=== PATIENT | male | born 1965 | race Caucasian/White ===

== ENCOUNTER 2016-12-26 10:41 | Emergency (ER) | payer OTHER ==
[~2016-12-26] VITALS: Ht 175.2 cm; Wt 90.7 kg
[~2016-12-26 10:41] MED LIST: BENADRYL50 MG PO; CIPROFLOXACIN500 MG PO; PREDNICOT20 MG PO; VICODIN 500 MG-1 TAB PO
[2016-12-26] MEDS ORDERED: NAPROSYN500 MG PO (11:24)
== END 2016-12-26 12:21 | disposition home or self-care (01) ==
LOC: ED 10:41
DX: S86.912A Strain of unspecified muscle(s) and tendon(s) at lower leg level, left leg, initial encounter (principal); F17.200 Nicotine dependence, unspecified, uncomplicated; X58.XXXA Exposure to other specified factors, initial encounter; Y93.89 Activity, other specified; Y92.89 Other specified places as the place of occurrence of the external cause; Y99.9 Unspecified external cause status

== ENCOUNTER 2017-05-24 08:29 | Emergency (ER) | payer OTHER ==
[~2017-05-24] VITALS: Ht 170.1 cm; Wt 81.6 kg
[~2017-05-24 08:29] MED LIST changes: +NAPROSYN500 MG PO
[2017-05-24] MEDS ORDERED: Motrin,Rufen800 MG PO (09:44)
== END 2017-05-24 10:06 | disposition home or self-care (01) ==
LOC: ED 08:29
DX: S96.811A Strain of other specified muscles and tendons at ankle and foot level, right foot, initial encounter (principal); F17.200 Nicotine dependence, unspecified, uncomplicated; Z79.899 Other long term (current) drug therapy; W22.8XXA Striking against or struck by other objects, initial encounter; Y93.01 Activity, walking, marching and hiking; Y92.098 Other place in other non-institutional residence as the place of occurrence of the external cause; Y99.8 Other external cause status

== ENCOUNTER 2018-02-17 09:32 | Emergency (ER) | payer OTHER ==
[~2018-02-17] VITALS: Wt 90.7 kg
[~2018-02-17 09:32] MED LIST changes: +Motrin,Rufen800 MG PO
== END 2018-02-17 12:54 | disposition home or self-care (01) ==
LOC: ED 09:32
DX: S00.33XA Contusion of nose, initial encounter (principal); Z79.1 Long term (current) use of non-steroidal anti-inflammatories (NSAID); Z79.899 Other long term (current) drug therapy; W20.8XXA Other cause of strike by thrown, projected or falling object, initial encounter; Y93.89 Activity, other specified; Y92.89 Other specified places as the place of occurrence of the external cause; Y99.8 Other external cause status

== ENCOUNTER 2020-07-10 13:32 | Emergency (ER) | payer OTHER ==
[~2020-07-10] VITALS: Wt 81.6 kg
[2020-07-10 14:36] LABS: BASO # 0.1 10*3/uL (0.0-0.1); BASO % 0.9 % (0.0-1.0); EOS # 0.1 10*3/uL (0.0-0.4); HEMATOCRIT 38.3 % (42.0-52.0); LYMPH # 2.1 10*3/uL (1.3-4.4); LYMPH % 35.8 % (27.0-41.0); MEAN CELL VOLUME 65.6 fl (80.0-94.0); MEAN CORPUSCULAR HGB 20.7 pg (27.0-31.0); MEAN CORPUSCULAR HGB CONC 31.6 g/dl (33.0-37.0); MEAN PLATELET VOLUME 9.2 fl (9.6-12.3); MONO # 0.4 10*3/uL (0.1-1.0); MONO % 7.1 % (3.0-9.0); NEUT # 3.2 10*3/uL (2.3-7.9); PLATELET COUNT AUTOMATED 225 10*3/uL (130-400); RED BLOOD COUNT 5.84 10*6/uL (4.50-5.90); RED CELL DISTRI WIDTH 17.2 % (0-14.5); WHITE BLOOD COUNT 5.8 10*3/uL (4.8-10.8)
[2020-07-10 14:49] LABS: ACT PARTIAL THROMBO TIME 29.9 SECONDS (20.0-32.1)
[2020-07-10 14:53] LABS: ALBUMIN 4.1 gm/dl (3.1-4.5); ALKALINE PHOSPHATASE 80 U/L (45-117); BUN 12 mg/dl (7-24); CHLORIDE 106 mmol/L (98-107); CREATININE 0.89 mg/dL (0.70-1.30); POTASSIUM 3.4 mmol/L (3.5-5.1); SGOT/AST 17 IU/L (3-35); SGPT/ALT 25 U/L (12-78); SODIUM 139 mmol/L (136-145); TOTAL PROTEIN 7.8 gm/dL (6.4-8.2)
[2020-07-10 15:43] LABS: BILIRUBIN Negative (Negative); BLOOD Negative (Negative); CLARITY Clear (Clear); COLOR Yellow (Yellow); GLUCOSE Negative (Negative); KETONE Negative (Negative); LEUKO ESTERASE Negative (Negative); NITRITE Negative (Negative); SPECIFIC GRAVITY <= 1.005 (1.001-1.030); UROBILINOGEN 0.2 E.U./dl (0.0-1.0)
[2020-07-10 15:50] LABS: URINE AMPHETAMINES < 1000 (1000ng/ml); URINE BARBITURATES < 200 (200ng/ml); URINE BENZODIAZEPINES < 200 (200ng/ml); URINE CANNABINOIDS (THC) < 50 (50ng/ml); URINE COCAINE < 300 (300ng/ml); URINE METHADONE < 300 (300ng/ml); URINE OPIATES < 300 (300ng/ml); URINE PHENCYCLIDINE < 25 (25ng/ml)
[2020-07-10 16:00] LABS: BACTERIA TRACE; EPITHELIAL CELLS 0-2; WBC 0-2 wbc/hpf (0-5)
== END 2020-07-10 16:58 | disposition home or self-care (01) ==
LOC: ED 13:32
PROVIDERS: Nurse Practitioner
DX: S00.12XA Contusion of left eyelid and periocular area, initial encounter (principal); Z79.899 Other long term (current) drug therapy; W19.XXXA Unspecified fall, initial encounter; Y93.89 Activity, other specified; Y92.89 Other specified places as the place of occurrence of the external cause; Y99.0 Civilian activity done for income or pay

== ENCOUNTER → 2020-10-26 | Outpatient (CLI) | payer OTHER | END | disposition home or self-care (01) | LOC: CT 15:00 | PROVIDERS: ATTEND Family Medicine | DX: R47.01 Aphasia (principal) ==

== ENCOUNTER → 2020-11-03 | Outpatient (CLI) | payer OTHER | END | disposition home or self-care (01) | LOC: CT 14:40 | PROVIDERS: ATTEND Family Medicine | DX: R53.83 Other fatigue (principal); R63.4 Abnormal weight loss; R13.10 Dysphagia, unspecified; R47.01 Aphasia; F17.200 Nicotine dependence, unspecified, uncomplicated; R04.2 Hemoptysis ==

== ENCOUNTER → 2021-02-09 | Outpatient (CLI) | payer OTHER | END | disposition home or self-care (01) | LOC: RAD 07:59 | PROVIDERS: ATTEND Psychiatry & Neurology Neurology | DX: G31.9 Degenerative disease of nervous system, unspecified (principal) ==

== ENCOUNTER 2021-05-10 20:09 | Inpatient (IN) | payer OTHER ==
[~2021-05-10] VITALS: Ht 175.2 cm; Wt 69.0 kg
[2021-05-10 20:53] LABS: BASO % 0.4 % (0.0-1.0); EOS % 0.2 % (1.0-4.0); HEMATOCRIT 28.9 % (42.0-52.0); LYMPH # 0.3 10*3/uL (1.3-4.4); LYMPH % 6.2 % (27.0-41.0); MEAN CELL VOLUME 65.5 fl (80.0-94.0); MEAN CORPUSCULAR HGB 20.6 pg (27.0-31.0); MEAN CORPUSCULAR HGB CONC 31.5 g/dl (33.0-37.0); MEAN PLATELET VOLUME 8.6 fl (9.6-12.3); MONO # 0.4 10*3/uL (0.1-1.0); MONO % 7.8 % (3.0-9.0); NEUT # 4.3 10*3/uL (2.3-7.9); NEUT % 84.8 % (47.0-73.0); PLATELET COUNT AUTOMATED 208 10*3/uL (130-400); RED BLOOD COUNT 4.41 10*6/uL (4.50-5.90); RED CELL DISTRI WIDTH 16.3 % (0-14.5)
[2021-05-10 21:09] LABS: ALBUMIN 3.5 gm/dl (3.1-4.5); ALKALINE PHOSPHATASE 66 U/L (45-117); BUN 15 mg/dl (7-24); CHLORIDE 102 mmol/L (98-107); CREATININE 0.82 mg/dL (0.70-1.30); SGOT/AST 25 IU/L (3-35); SGPT/ALT 20 U/L (12-78); SODIUM 136 mmol/L (136-145); TOTAL PROTEIN 6.9 gm/dL (6.4-8.2)
[2021-05-10 21:10] LABS: ETHYL ALCOHOL < 3.0 mg/dl (<3)
[2021-05-10] MEDS ORDERED: MEMANTINE HCL5 MG PO (22:01)
[2021-05-11 06:33] LABS: BASO % 0.4 % (0.0-1.0); HEMATOCRIT 26.4 % (42.0-52.0); LYMPH # 0.3 10*3/uL (1.3-4.4); LYMPH % 11.9 % (27.0-41.0); MEAN CELL VOLUME 64.9 fl (80.0-94.0); MEAN CORPUSCULAR HGB 20.4 pg (27.0-31.0); MEAN CORPUSCULAR HGB CONC 31.4 g/dl (33.0-37.0); MEAN PLATELET VOLUME 8.9 fl (9.6-12.3); MONO # 0.4 10*3/uL (0.1-1.0); MONO % 13.9 % (3.0-9.0); NEUT # 1.9 10*3/uL (2.3-7.9); NEUT % 73.4 % (47.0-73.0); PLATELET COUNT AUTOMATED 196 10*3/uL (130-400); RED BLOOD COUNT 4.07 10*6/uL (4.50-5.90); RED CELL DISTRI WIDTH 16.3 % (0-14.5); WHITE BLOOD COUNT 2.5 10*3/uL (4.8-10.8)
[2021-05-11 07:02] LABS: ALBUMIN 3.1 gm/dl (3.1-4.5); BUN 16 mg/dl (7-24); CHLORIDE 102 mmol/L (98-107); POTASSIUM 3.8 mmol/L (3.5-5.1); SODIUM 134 mmol/L (136-145)
[2021-05-11 07:14] LABS: ALKALINE PHOSPHATASE 58 U/L (45-117); CREATININE 0.76 mg/dL (0.70-1.30); SGOT/AST 23 IU/L (3-35); SGPT/ALT 20 U/L (12-78); THYROID STIM HORMONE (HS) 0.431 uIU/ml (0.358-4.75); TOTAL PROTEIN 6.1 gm/dL (6.4-8.2)
[2021-05-11 07:34] VITALS: BP 113/61
[2021-05-11 08:52] LABS: VITAMIN D, 25-HYDROXY 11.2 ng/mL (30-100)
[2021-05-11 15:13] VITALS: BP 123/60
[2021-05-11 21:30] VITALS: BP 117/67
[2021-05-11 21:37] VITALS: BP 122/80
[2021-05-12] VITALS: BP 118/73
[2021-05-12 06:49] LABS: BASO % 0.4 % (0.0-1.0); HEMATOCRIT 27.8 % (42.0-52.0); LYMPH % 37.5 % (27.0-41.0); MEAN CELL VOLUME 65.9 fl (80.0-94.0); MEAN CORPUSCULAR HGB 20.4 pg (27.0-31.0); MEAN CORPUSCULAR HGB CONC 30.9 g/dl (33.0-37.0); MEAN PLATELET VOLUME 8.9 fl (9.6-12.3); MONO # 0.3 10*3/uL (0.1-1.0); MONO % 9.5 % (3.0-9.0); NEUT # 1.4 10*3/uL (2.3-7.9); NEUT % 52.2 % (47.0-73.0); PLATELET COUNT AUTOMATED 203 10*3/uL (130-400); RED BLOOD COUNT 4.22 10*6/uL (4.50-5.90); RED CELL DISTRI WIDTH 16.8 % (0-14.5); WHITE BLOOD COUNT 2.8 10*3/uL (4.8-10.8)
[2021-05-12 07:21] LABS: CHLORIDE 101 mmol/L (98-107); SODIUM 133 mmol/L (136-145)
[2021-05-12 07:31] LABS: ALBUMIN 2.9 gm/dl (3.1-4.5); ALKALINE PHOSPHATASE 58 U/L (45-117); BUN 18 mg/dl (7-24); SGOT/AST 28 IU/L (3-35); SGPT/ALT 19 U/L (12-78); TOTAL PROTEIN 6.1 gm/dL (6.4-8.2)
[2021-05-12 08:00] VITALS: BP 111/61
[2021-05-12 15:21] VITALS: BP 128/68
[2021-05-12 20:00] VITALS: BP 134/73; BP 99/61
[2021-05-12 20:05] LABS: BILIRUBIN Negative (Negative); BLOOD Negative (Negative); CLARITY Clear (Clear); COLOR Yellow (Yellow); GLUCOSE Negative (Negative); KETONE Negative (Negative); LEUKO ESTERASE Negative (Negative); NITRITE Negative (Negative); SPECIFIC GRAVITY 1.015 (1.001-1.030)
[2021-05-12 20:12] LABS: URINE AMPHETAMINES < 1000 (1000ng/ml); URINE BARBITURATES < 200 (200ng/ml); URINE BENZODIAZEPINES < 200 (200ng/ml); URINE CANNABINOIDS (THC) < 50 (50ng/ml); URINE COCAINE < 300 (300ng/ml); URINE METHADONE < 300 (300ng/ml); URINE OPIATES < 300 (300ng/ml)
[2021-05-12 20:13] LABS: URINE PHENCYCLIDINE < 25 (25ng/ml)
[2021-05-12 20:15] LABS: BACTERIA TRACE; EPITHELIAL CELLS 0-2; RBC 0-2 rbc/hpf (0-2); WBC 0-2 wbc/hpf (0-5)
[2021-05-13] VITALS: BP 125/68
[2021-05-13 08:00] VITALS: BP 115/66
[2021-05-13 16:00] VITALS: BP 109/66
[2021-05-14] VITALS: BP 113/70
[2021-05-14 07:21] LABS: BASO % 0.2 % (0.0-1.0); HEMATOCRIT 31.6 % (42.0-52.0); LYMPH # 1.2 10*3/uL (1.3-4.4); LYMPH % 20.9 % (27.0-41.0); MEAN CORPUSCULAR HGB 20.7 pg (27.0-31.0); MEAN CORPUSCULAR HGB CONC 31.3 g/dl (33.0-37.0); MEAN PLATELET VOLUME 9.2 fl (9.6-12.3); MONO # 0.3 10*3/uL (0.1-1.0); MONO % 5.8 % (3.0-9.0); NEUT % 72.6 % (47.0-73.0); NUCLEATED RED BLOOD CELL 0.4 % (0.0-0.0); PLATELET COUNT AUTOMATED 232 10*3/uL (130-400); RED BLOOD COUNT 4.79 10*6/uL (4.50-5.90); RED CELL DISTRI WIDTH 16.6 % (0-14.5); WHITE BLOOD COUNT 5.5 10*3/uL (4.8-10.8)
[2021-05-14 07:33] LABS: BUN 14 mg/dl (7-24); CHLORIDE 101 mmol/L (98-107); CREATININE 0.68 mg/dL (0.70-1.30); POTASSIUM 4.7 mmol/L (3.5-5.1); SODIUM 133 mmol/L (136-145)
[2021-05-14 08:48] VITALS: BP 106/63
[2021-05-14 12:25] VITALS: BP 114/73
[2021-05-14 16:00] VITALS: BP 104/66
[2021-05-14 20:17] VITALS: BP 113/70
[2021-05-15] VITALS: BP 104/63
[2021-05-15 08:00] VITALS: BP 112/68
[2021-05-15 12:00] VITALS: BP 99/66
[2021-05-15 16:00] VITALS: BP 112/69; BP 125/47
[2021-05-15 20:00] VITALS: BP 103/69
[2021-05-15 23:35] VITALS: BP 115/61
[2021-05-16 06:59] LABS: HEMATOCRIT 31.3 % (42.0-52.0); MEAN CELL VOLUME 66.2 fl (80.0-94.0); MEAN CORPUSCULAR HGB 20.5 pg (27.0-31.0); MEAN PLATELET VOLUME 9.3 fl (9.6-12.3); NUCLEATED RED BLOOD CELL 0.5 % (0.0-0.0); PLATELET COUNT AUTOMATED 242 10*3/uL (130-400); RED BLOOD COUNT 4.73 10*6/uL (4.50-5.90); RED CELL DISTRI WIDTH 16.8 % (0-14.5); WHITE BLOOD COUNT 3.8 10*3/uL (4.8-10.8)
[2021-05-16 07:04] LABS: BUN 17 mg/dl (7-24); CHLORIDE 103 mmol/L (98-107); CREATININE 0.72 mg/dL (0.70-1.30); POTASSIUM 5.3 mmol/L (3.5-5.1); SODIUM 136 mmol/L (136-145)
[2021-05-16 08:00] VITALS: BP 115/64
[2021-05-16 08:13] LABS: ATYPICAL LYMPHS 3 % (0-0); BURR CELLS FEW; MICROCYTOSIS MODERATE; PLATELET SUFFICIENCY NORMAL (NORMAL); POLYCHROMASIA SLIGHT; TARGET CELLS FEW; TOTAL CELLS COUNTED 100 #CELLS
[2021-05-16 08:14] LABS: OVALOCYTES FEW; ROULEAUX SLIGHT; SCHISTOCYTES FEW
[2021-05-16 12:00] VITALS: BP 97/60
[2021-05-16 16:00] VITALS: BP 115/70
[2021-05-16 20:00] VITALS: BP 109/75
[2021-05-17] VITALS: BP 111/67
[2021-05-17 08:00] VITALS: BP 119/76
[2021-05-17 12:00] VITALS: BP 103/71
[2021-05-17] MEDS ORDERED: PHARMASSURE V500 MCG PO (12:02)
[2021-05-17] MEDS ORDERED: VITAMIN D350 MC2 PO (12:02)
[2021-05-17] MEDS ORDERED: NATURE'S BLEND F1 MG PO (12:02)
== END 2021-05-17 16:52 | DRG 179 ==
LOC: ED 20:09 → 4E 22:54 → EDHOLD 22:54 → 5E 05-11 20:36 → 4E 05-13 11:56
PROVIDERS: Emergency Medicine; Hospitalist; Internal Medicine; Physician Assistant; ADMIT Family Medicine; ATTEND Family Medicine
DX: U07.1 COVID-19 (principal); R26.2 Difficulty in walking, not elsewhere classified; E83.41 Hypermagnesemia; G31.01 Pick's disease; R73.9 Hyperglycemia, unspecified; F17.210 Nicotine dependence, cigarettes, uncomplicated; D50.9 Iron deficiency anemia, unspecified; G30.0 Alzheimer's disease with early onset; F02.80 Dementia in other diseases classified elsewhere, unspecified severity, without behavioral disturbance, psychotic disturbance, mood disturbance, and anxiety; E80.6 Other disorders of bilirubin metabolism; W19.XXXA Unspecified fall, initial encounter; Y93.89 Activity, other specified; Y92.89 Other specified places as the place of occurrence of the external cause; Y99.8 Other external cause status; Z71.6 Tobacco abuse counseling; Z79.899 Other long term (current) drug therapy; Z82.49 Family history of ischemic heart disease and other diseases of the circulatory system; Z82.0 Family history of epilepsy and other diseases of the nervous system

== ENCOUNTER 2021-06-14 13:49 | Inpatient (IN) | payer SELFPAY ==
[~2021-06-14] VITALS: Ht 175.2 cm; Wt 69.9 kg
[~2021-06-14 13:49] MED LIST changes: +MEMANTINE HCL5 MG PO; +NATURE'S BLEND F1 MG PO; +PHARMASSURE V500 MCG PO; +VITAMIN D350 MC2 PO
[2021-06-14 14:16] VITALS: BP 128/76
[2021-06-14 15:18] LABS: BASO % 0.8 % (0.0-1.0); EOS # 0.1 10*3/uL (0.0-0.4); HEMATOCRIT 31.4 % (42.0-52.0); LYMPH # 1.2 10*3/uL (1.3-4.4); LYMPH % 22.8 % (27.0-41.0); MEAN CELL VOLUME 67.5 fl (80.0-94.0); MEAN CORPUSCULAR HGB 21.1 pg (27.0-31.0); MEAN CORPUSCULAR HGB CONC 31.2 g/dl (33.0-37.0); MEAN PLATELET VOLUME 9.4 fl (9.6-12.3); MONO # 0.5 10*3/uL (0.1-1.0); MONO % 9.3 % (3.0-9.0); NEUT # 3.5 10*3/uL (2.3-7.9); NEUT % 65.9 % (47.0-73.0); PLATELET COUNT AUTOMATED 233 10*3/uL (130-400); RED BLOOD COUNT 4.65 10*6/uL (4.50-5.90); RED CELL DISTRI WIDTH 17.2 % (0-14.5); WHITE BLOOD COUNT 5.3 10*3/uL (4.8-10.8)
[2021-06-14 15:32] LABS: ALBUMIN 3.4 gm/dl (3.1-4.5); ALKALINE PHOSPHATASE 92 U/L (45-117); BUN 25 mg/dl (7-24); CHLORIDE 110 mmol/L (98-107); CREATININE 0.79 mg/dL (0.70-1.30); SGOT/AST 14 IU/L (3-35); SGPT/ALT 14 U/L (12-78); SODIUM 143 mmol/L (136-145); TOTAL PROTEIN 6.5 gm/dL (6.4-8.2)
[2021-06-14 20:00] VITALS: BP 149/71
[2021-06-14 20:29] LABS: BILIRUBIN Negative (Negative); BLOOD Negative (Negative); CLARITY Clear (Clear); COLOR Yellow (Yellow); GLUCOSE Negative (Negative); KETONE Negative (Negative); LEUKO ESTERASE Negative (Negative); NITRITE Negative (Negative); SPECIFIC GRAVITY 1.025 (1.001-1.030); UROBILINOGEN 0.2 E.U./dl (0.0-1.0)
[2021-06-14 20:38] LABS: URINE AMPHETAMINES < 1000 (1000ng/ml); URINE BARBITURATES < 200 (200ng/ml); URINE BENZODIAZEPINES < 200 (200ng/ml); URINE CANNABINOIDS (THC) < 50 (50ng/ml); URINE COCAINE < 300 (300ng/ml); URINE METHADONE < 300 (300ng/ml); URINE OPIATES < 300 (300ng/ml)
[2021-06-14 20:39] LABS: BACTERIA 2+; MUCOUS 2+
[2021-06-14 20:41] LABS: EPITHELIAL CELLS 0-2
[2021-06-14 20:43] LABS: URINE PHENCYCLIDINE < 25 (25ng/ml)
[2021-06-15] VITALS: BP 131/62
[2021-06-15 05:45] LABS: ALBUMIN 3.2 gm/dl (3.1-4.5); ALKALINE PHOSPHATASE 82 U/L (45-117); BUN 17 mg/dl (7-24); CHLORIDE 105 mmol/L (98-107); CREATININE 0.68 mg/dL (0.70-1.30); FREE T4 0.68 ng/dl (0.76-1.46); POTASSIUM 3.7 mmol/L (3.5-5.1); SGOT/AST 11 IU/L (3-35); SGPT/ALT 14 U/L (12-78); SODIUM 140 mmol/L (136-145); TOTAL PROTEIN 6.7 gm/dL (6.4-8.2)
[2021-06-15 05:52] LABS: THYROID STIM HORMONE (HS) 0.988 uIU/ml (0.358-4.75)
[2021-06-15 06:17] LABS: BASO # 0.1 10*3/uL (0.0-0.1); BASO % 1.2 % (0.0-1.0); EOS # 0.1 10*3/uL (0.0-0.4); HEMATOCRIT 32.1 % (42.0-52.0); LYMPH # 1.6 10*3/uL (1.3-4.4); LYMPH % 39.1 % (27.0-41.0); MEAN CORPUSCULAR HGB CONC 30.8 g/dl (33.0-37.0); MEAN PLATELET VOLUME 9.5 fl (9.6-12.3); MONO # 0.5 10*3/uL (0.1-1.0); MONO % 11.1 % (3.0-9.0); NEUT # 1.9 10*3/uL (2.3-7.9); NEUT % 46.4 % (47.0-73.0); PLATELET COUNT AUTOMATED 234 10*3/uL (130-400); RED BLOOD COUNT 4.72 10*6/uL (4.50-5.90); RED CELL DISTRI WIDTH 16.9 % (0-14.5)
[2021-06-15 07:40] VITALS: BP 122/75
[2021-06-15 11:18] VITALS: BP 113/60
[2021-06-15 16:00] VITALS: BP 111/69
[2021-06-15] MEDS ORDERED: RESTORIL15 MG PO (20:18)
[2021-06-16] MEDS ORDERED: EXELON1 EACH T (07:43)
== END 2021-06-15 18:16 | DRG 948 ==
LOC: ED 13:49 → EDHOLD 17:22 → 4E 17:22
PROVIDERS: Internal Medicine; Student in an Organized Health Care Education/Training Program; ADMIT Family Medicine; ATTEND Family Medicine
DX: R41.0 Disorientation, unspecified (principal); F02.81 Dementia in other diseases classified elsewhere, unspecified severity, with behavioral disturbance; R47.01 Aphasia; G31.01 Pick's disease; F17.210 Nicotine dependence, cigarettes, uncomplicated; R73.9 Hyperglycemia, unspecified; E87.8 Other disorders of electrolyte and fluid balance, not elsewhere classified; D50.9 Iron deficiency anemia, unspecified; Z71.6 Tobacco abuse counseling; Z82.49 Family history of ischemic heart disease and other diseases of the circulatory system

== ENCOUNTER 2021-06-15 17:01 | Inpatient (IN) | payer SELFPAY ==
[~2021-06-15] VITALS: Ht 175.3 cm; Wt 74.8 kg
[2021-06-15 18:11] VITALS: BP 145/87
[2021-06-15 20:00] VITALS: BP 118/72
[2021-06-15] MEDS ORDERED: RESTORIL15 MG PO (20:18)
[2021-06-16 06:39] LABS: BASO % 0.8 % (0.0-1.0); EOS # 0.1 10*3/uL (0.0-0.4); EOS % 1.5 % (1.0-4.0); HEMATOCRIT 32.8 % (42.0-52.0); LYMPH % 36.9 % (27.0-41.0); MEAN CELL VOLUME 67.5 fl (80.0-94.0); MEAN CORPUSCULAR HGB CONC 31.1 g/dl (33.0-37.0); MEAN PLATELET VOLUME 9.2 fl (9.6-12.3); MONO # 0.4 10*3/uL (0.1-1.0); MONO % 7.5 % (3.0-9.0); NEUT # 2.8 10*3/uL (2.3-7.9); NEUT % 53.1 % (47.0-73.0); PLATELET COUNT AUTOMATED 249 10*3/uL (130-400); RED BLOOD COUNT 4.86 10*6/uL (4.50-5.90); RED CELL DISTRI WIDTH 17.2 % (0-14.5); WHITE BLOOD COUNT 5.3 10*3/uL (4.8-10.8)
[2021-06-16 06:57] LABS: BUN 14 mg/dl (7-24); CHLORIDE 106 mmol/L (98-107); POTASSIUM 4.1 mmol/L (3.5-5.1); SODIUM 138 mmol/L (136-145)
[2021-06-16 07:10] LABS: ALKALINE PHOSPHATASE 98 U/L (45-117); CHOLESTEROL 128 mg/dL (<200); CREATININE 0.76 mg/dL (0.70-1.30); LDL CHOLESTEROL 66 mg/dL (9-159); SGOT/AST 12 IU/L (3-35); SGPT/ALT 19 U/L (12-78); TOTAL PROTEIN 6.6 gm/dL (6.4-8.2); TRIGLYCERIDES 76 mg/dl (<150)
[2021-06-16 07:40] VITALS: BP 137/72
[2021-06-16] MEDS ORDERED: EXELON1 EACH T (07:43)
[2021-06-16 07:57] LABS: VITAMIN D, 25-HYDROXY 14.3 ng/mL (30-100)
[2021-06-16 11:33] LABS: BILIRUBIN Negative (Negative); BLOOD Negative (Negative); CLARITY Clear (Clear); COLOR Yellow (Yellow); GLUCOSE Negative (Negative); KETONE Negative (Negative); LEUKO ESTERASE Negative (Negative); NITRITE Negative (Negative); UROBILINOGEN 0.2 E.U./dl (0.0-1.0)
[2021-06-16 11:42] LABS: BACTERIA TRACE; EPITHELIAL CELLS 0-2; MUCOUS 2+
[2021-06-16 20:00] VITALS: BP 142/83
[2021-06-17 07:00] VITALS: BP 106/68
[2021-06-17 20:00] VITALS: BP 127/67
[2021-06-18 08:07] VITALS: BP 106/75
[2021-06-18 20:00] VITALS: BP 106/75
[2021-06-19 08:00] VITALS: BP 104/65
[2021-06-19] MEDS ORDERED: PHARMASSURE V500 MCG PO (08:43)
[2021-06-19] MEDS ORDERED: VITAMIN D3125 MC1 PO (08:43)
[2021-06-19] MEDS ORDERED: MELATONIN5 M7 PO (08:43)
[2021-06-19] MEDS ORDERED: NATURE'S BLEND F1 MG PO (08:43)
[2021-06-19] MEDS ORDERED: DEPAKOTE250 MG PO (15:52)
[2021-06-19] MEDS ORDERED: RIVASTIGMINE T4.5 M1 PO (15:55)
[2021-06-19] MEDS ORDERED: NAMENDA10 MG PO (15:55)
[2021-06-19] MEDS ORDERED: NICODERM CQ1 EAC2 T (15:56)
== END 2021-06-19 16:20 | disposition short-term general hospital (02) | DRG 885 ==
LOC: 3N 17:01
PROVIDERS: ADMIT Psychiatry & Neurology Psychiatry; ATTEND Psychiatry & Neurology Psychiatry
DX: F39 Unspecified mood [affective] disorder (principal); S06.5X9A Traumatic subdural hemorrhage with loss of consciousness of unspecified duration, initial encounter; G31.01 Pick's disease; R41.0 Disorientation, unspecified; F02.80 Dementia in other diseases classified elsewhere, unspecified severity, without behavioral disturbance, psychotic disturbance, mood disturbance, and anxiety; F17.210 Nicotine dependence, cigarettes, uncomplicated; D50.9 Iron deficiency anemia, unspecified; E87.8 Other disorders of electrolyte and fluid balance, not elsewhere classified; R73.9 Hyperglycemia, unspecified; X58.XXXA Exposure to other specified factors, initial encounter; Y93.89 Activity, other specified; Y92.89 Other specified places as the place of occurrence of the external cause; Z71.6 Tobacco abuse counseling; Y99.8 Other external cause status; Z68.22 Body mass index [BMI] 22.0-22.9, adult

== ENCOUNTER 2021-06-19 16:22 | Inpatient (IN) | payer SELFPAY ==
[~2021-06-19] VITALS: Ht 180.3 cm; Wt 73.0 kg
[~2021-06-19 16:22] MED LIST changes: +DEPAKOTE250 MG PO; +EXELON1 EACH T; +MELATONIN5 M7 PO; +NAMENDA10 MG PO; +NICODERM CQ1 EAC2 T; +RESTORIL15 MG PO; +RIVASTIGMINE T4.5 M1 PO; +VITAMIN D3125 MC1 PO
[2021-06-19 16:35] VITALS: BP 177/92
[2021-06-19 20:00] VITALS: BP 141/77
[2021-06-20] VITALS: BP 109/70
[2021-06-20 06:15] LABS: BASO # 0.1 10*3/uL (0.0-0.1); BASO % 0.6 % (0.0-1.0); EOS # 0.1 10*3/uL (0.0-0.4); EOS % 0.7 % (1.0-4.0); HEMATOCRIT 36.8 % (42.0-52.0); LYMPH # 2.1 10*3/uL (1.3-4.4); LYMPH % 22.7 % (27.0-41.0); MEAN CELL VOLUME 67.9 fl (80.0-94.0); MEAN PLATELET VOLUME 9.1 fl (9.6-12.3); MONO # 0.7 10*3/uL (0.1-1.0); MONO % 6.9 % (3.0-9.0); NEUT # 6.5 10*3/uL (2.3-7.9); NEUT % 68.8 % (47.0-73.0); PLATELET COUNT AUTOMATED 300 10*3/uL (130-400); RED BLOOD COUNT 5.42 10*6/uL (4.50-5.90); RED CELL DISTRI WIDTH 17.9 % (0-14.5); WHITE BLOOD COUNT 9.4 10*3/uL (4.8-10.8)
[2021-06-20 06:30] LABS: BUN 11 mg/dl (7-24); CHLORIDE 103 mmol/L (98-107); CREATININE 0.73 mg/dL (0.70-1.30); POTASSIUM 4.3 mmol/L (3.5-5.1); SODIUM 138 mmol/L (136-145)
[2021-06-20 08:00] VITALS: BP 120/68
[2021-06-20 12:00] VITALS: BP 126/80
[2021-06-20 16:00] VITALS: BP 139/87
== END 2021-06-20 17:45 | disposition short-term general hospital (02) | DRG 83 ==
LOC: 4E 16:22
PROVIDERS: Registered Nurse; ADMIT Student in an Organized Health Care Education/Training Program; ATTEND Student in an Organized Health Care Education/Training Program
DX: S06.5X9A Traumatic subdural hemorrhage with loss of consciousness of unspecified duration, initial encounter (principal); F02.81 Dementia in other diseases classified elsewhere, unspecified severity, with behavioral disturbance; G31.83 Neurocognitive disorder with Lewy bodies; W19.XXXD Unspecified fall, subsequent encounter; X58.XXXA Exposure to other specified factors, initial encounter; Y93.89 Activity, other specified; Y92.89 Other specified places as the place of occurrence of the external cause; Y99.8 Other external cause status

== ENCOUNTER 2021-08-11 16:38 | Inpatient (IN) | payer MEDICAID ==
[~2021-08-11] VITALS: Ht 175.3 cm; Wt 71.8 kg
[2021-08-11 16:46] VITALS: BP 140/70
[2021-08-11 17:37] LABS: BASO # 0.1 10*3/uL (0.0-0.1); BASO % 0.6 % (0.0-1.0); EOS # 0.1 10*3/uL (0.0-0.4); EOS % 0.6 % (1.0-4.0); HEMATOCRIT 37.9 % (42.0-52.0); LYMPH # 1.6 10*3/uL (1.3-4.4); LYMPH % 18.2 % (27.0-41.0); MEAN CELL VOLUME 65.1 fl (80.0-94.0); MEAN CORPUSCULAR HGB 20.6 pg (27.0-31.0); MEAN CORPUSCULAR HGB CONC 31.7 g/dl (33.0-37.0); MEAN PLATELET VOLUME 9.4 fl (9.6-12.3); MONO # 0.5 10*3/uL (0.1-1.0); MONO % 6.4 % (3.0-9.0); NEUT # 6.3 10*3/uL (2.3-7.9); PLATELET COUNT AUTOMATED 196 10*3/uL (130-400); RED BLOOD COUNT 5.82 10*6/uL (4.50-5.90); RED CELL DISTRI WIDTH 16.1 % (0-14.5); WHITE BLOOD COUNT 8.5 10*3/uL (4.8-10.8)
[2021-08-11 17:52] LABS: ALKALINE PHOSPHATASE 79 U/L (45-117); BUN 21 mg/dl (7-24); CHLORIDE 107 mmol/L (98-107); CREATININE 0.74 mg/dL (0.70-1.30); LIPASE 78 U/L (73-393); POTASSIUM 3.9 mmol/L (3.5-5.1); SGOT/AST 24 IU/L (3-35); SGPT/ALT 35 U/L (12-78); SODIUM 141 mmol/L (136-145); TOTAL PROTEIN 7.5 gm/dL (6.4-8.2)
[2021-08-11 18:22] LABS: BILIRUBIN Negative (Negative); BLOOD Negative (Negative); CLARITY Clear (Clear); COLOR Yellow (Yellow); GLUCOSE Negative (Negative); KETONE Negative (Negative); LEUKO ESTERASE Negative (Negative); NITRITE Negative (Negative)
[2021-08-11 18:32] LABS: WBC 0-2 wbc/hpf (0-5)
[2021-08-11 20:27] VITALS: BP 146/81
[2021-08-11 21:00] VITALS: BP 153/76
[2021-08-11] MEDS ORDERED: CELEBREX100 MG PO (21:58)
[2021-08-11] MEDS ORDERED: LIPITOR20 MG PO (21:59)
[2021-08-12] VITALS: BP 138/89
[2021-08-12 05:52] LABS: BUN 19 mg/dl (7-24); CHLORIDE 107 mmol/L (98-107); CREATININE 0.75 mg/dL (0.70-1.30); POTASSIUM 3.4 mmol/L (3.5-5.1); SODIUM 142 mmol/L (136-145)
[2021-08-12 06:22] LABS: BASO # 0.1 10*3/uL (0.0-0.1); BASO % 1.3 % (0.0-1.0); EOS # 0.1 10*3/uL (0.0-0.4); EOS % 1.8 % (1.0-4.0); HEMATOCRIT 34.8 % (42.0-52.0); LYMPH # 2.1 10*3/uL (1.3-4.4); LYMPH % 53.3 % (27.0-41.0); MEAN CORPUSCULAR HGB 20.6 pg (27.0-31.0); MEAN CORPUSCULAR HGB CONC 31.6 g/dl (33.0-37.0); MONO # 0.5 10*3/uL (0.1-1.0); MONO % 11.4 % (3.0-9.0); NEUT # 1.3 10*3/uL (2.3-7.9); NEUT % 32.2 % (47.0-73.0); PLATELET COUNT AUTOMATED 184 10*3/uL (130-400); RED BLOOD COUNT 5.35 10*6/uL (4.50-5.90); RED CELL DISTRI WIDTH 15.9 % (0-14.5)
[2021-08-12 08:00] VITALS: BP 107/68
[2021-08-12 12:00] VITALS: BP 112/64
[2021-08-12 16:00] VITALS: BP 110/62
[2021-08-12 20:00] VITALS: BP 132/69
== END 2021-08-12 20:45 | DRG 947 ==
LOC: ED 16:38 → EDHOLD 20:00 → 5E 20:23
PROVIDERS: Emergency Medicine; Internal Medicine; ADMIT Student in an Organized Health Care Education/Training Program; ATTEND Student in an Organized Health Care Education/Training Program
DX: R41.82 Altered mental status, unspecified (principal); I62.03 Nontraumatic chronic subdural hemorrhage; G31.01 Pick's disease; D50.9 Iron deficiency anemia, unspecified; E83.41 Hypermagnesemia; F02.80 Dementia in other diseases classified elsewhere, unspecified severity, without behavioral disturbance, psychotic disturbance, mood disturbance, and anxiety; Z20.822 Contact with and (suspected) exposure to COVID-19; F17.210 Nicotine dependence, cigarettes, uncomplicated; Z82.0 Family history of epilepsy and other diseases of the nervous system; Z82.49 Family history of ischemic heart disease and other diseases of the circulatory system; Z79.899 Other long term (current) drug therapy